=== PATIENT | male | born 1940 | race American Indian/Alaskan Native ===

== ENCOUNTER 2016-10-15 09:12 | Day surgery (SDC) | payer MEDICARE ==
[2016-10-15 09:55] LABS: Hematocrit 25.4 % (35.5-45.6); Hemoglobin 7.9 gm/dl (11.8-15.2)
[2016-10-15] MEDS ORDERED: NACL 0.9% 250ML 250 ML IV ONE (10:02)
[2016-10-15] MEDS ORDERED: TYLENOL PO ONE (10:03)
[2016-10-15] MEDS ORDERED: BENADRYL PO ONE (10:03)
[2016-10-15] MEDS ORDERED: FLUSH HEPARIN IV ONE ×2 (14:56→14:58)
[2016-10-15 15:16] VITALS: BP 132/74
== END 2016-10-15 15:40 | disposition home or self-care (01) ==
LOC: OPU 09:12
PROVIDERS: ATTEND Internal Medicine Hematology & Oncology
DX: D64.9 Anemia, unspecified (principal)
CPT/HCPCS: 36415; 36430; 85018; 86850; 86900; 86901; 86920; J1642; J7050; P9040